=== PATIENT | male | born 2000 | race Caucasian/White ===

== ENCOUNTER 2025-03-20 08:01 | Emergency (ER) | payer OTHER, SELFPAY ==
[2025-03-20 08:12] VITALS: BP 143/69; PULSE 61; RESP 16; TEMP 36.6; O2SAT 100
--- NOTE | 2025-03-20 08:17 | ED.GENADULT ---
HPI - General Adult General Chief complaint: Dental/Oral Stated complaint: JAW SWELLING Time Seen by Provider: 03/20/25 08:15 Mode of arrival: ambulatory Limitations: no limitations History of Present Illness HPI narrative: 24-year-old male presents with concern for right jaw swelling. Reports his job is hurting last night noticed it was swollen this morning. He denies dental pain. Denies fever problems swallowing. Denies ear pain. Reports the area is tender to touch MD complaint: jaw swelling Related Data Allergies Allergy/AdvReac Type Severity Reaction Status Date / Time No Known Allergies Allergy Verified 03/20/25 08:10 Review of Systems Review of Systems: CONSTITUTIONAL: Denies malaise, chills, sweats, or fever. ENT: Denies rhinorrhea, congestion, sinus pain, otalgia or sore throat. RESPIRATORY: Denies cough or dyspnea. SKIN: Denies rash or itching. Reports tenderness to the right jaw MUSCULOSKELETAL: Denies myalgia. All systems reviewed & are unremarkable except as noted in HPI and below PMFSH Comments At time of signature, agree with nursing past medical, surgical, social and family history. There is no relevant family history pertinent to the presenting complaint Exam Narrative: GENERAL: Well-appearing, well-nourished, and in no acute distress. HEAD: Normocephalic, atraumatic. EYES: PERRLA, sclera clear, and EOMI. No nystagmus. ENT: Nares clear, turbinates pink, no rhinorrhea or epistaxis. Mucous membranes moist. TM pearly mckeon with sharp light reflex bilaterally; no tragal tenderness. Oropharynx without erythema or lesions. Tonsils not enlarged and without exudate. No missing teeth, broken teeth, caries, dental pain. No difficulty swallowing NECK: Supple. No lymphadenopathy. Right Parotid gland swelling and tenderness, no redness or warmth noted CHEST: No respiratory distress. Speaks in full sentences. HEART: Regular rate and rhythm. No murmur heard. Normal peripheral pulses. SKIN: Warm, dry, no visible rash. NEURO: Alert and oriented x3. PSYCH: Normal mood and affect Course Course Emergency Course: Patient is aware of diagnosis, understands and agrees to treatment plan. Anticipatory guidance given. Patient agrees to follow-up as directed and is aware of reasons to seek care at the emergency department. Portions of this record may have been created with voice recognition software Level of Care: Express Care Visit Vital Signs Vital signs: Vital Signs Temperature 98 F 03/20/25 08:12 Pulse Rate 61 03/20/25 08:12 Respiratory Rate 16 03/20/25 08:12 Blood Pressure 143/69 H 03/20/25 08:12 Pulse Oximetry 100 03/20/25 08:12 Temperature 98 F 03/20/25 08:12 Pulse Rate 61 03/20/25 08:12 Respiratory Rate 16 03/20/25 08:12 Blood Pressure 143/69 H 03/20/25 08:12 Pulse Oximetry 100 03/20/25 08:12 Reviewed. Medical Decision Making MDM Narrative Medical decision making narrative: The patient was evaluated by myself in the express care. History is obtained from patient who is an independent historian and physical exam was performed.? Available medical records were reviewed at this time. ? Exam findings show no acute concerns or changes; patient is non-toxic appearing and is in no distress. Patient is appropriate for outpatient treatment and follow-up. ? I have evaluated and discussed social determinants of health with the patient that could potentially impact subsequent diagnosis and treatment plans. ? Differential diagnosis and treatment plan were discussed with the patient. Patient agrees with discussion and after shared medical decision making agrees with plan of care. All questions were answered to the patient's satisfaction. Vital Signs Vital Signs: Vital Signs Temperature 98 F 03/20/25 08:12 Pulse Rate 61 03/20/25 08:12 Respiratory Rate 16 03/20/25 08:12 Blood Pressure 143/69 H 03/20/25 08:12 Pulse Oximetry 100 03/20/25 08:12 Temperature 98 F 03/20/25 08:12 Pulse Rate 61 03/20/25 08:12 Respiratory Rate 16 03/20/25 08:12 Blood Pressure 143/69 H 03/20/25 08:12 Pulse Oximetry 100 03/20/25 08:12 Critical Care Time Critical Care Time Critical Care Time: No Discharge Plan Discharge Clinical Impression: Swelling of right parotid gland Patient Disposition: Home Condition: Stable Instructions: Antibiotic Form, Sialoadenitis (ED) Additional Instructions: 1) Please follow-up with your primary care doctor in the next 1-2 days. 2) If you have any worsening of symptoms or any other urgent concerns please go to the ER. 3) Please take medications as prescribed and continue taking your home medications as usual. 4) Please read and follow information included in discharge instructions. Patient Language: Syriac Prescriptions: New amoxicillin-pot clavulanate 875-125 mg tablet 1 tablet PO Q12H 10 Days Qty: 20 0RF Follow-up/Referrals: PHYSICIAN,CORRECTIONAL SECURITY OFFICER [Primary Care Provider] - Stand Alone Forms: Work/School Release IP Time of Disposition: 08:23
== END 2025-03-20 08:26 | disposition home or self-care (01) ==
PROVIDERS: Emergency Provider Nurse Practitioner
DX: R59.0 Localized enlarged lymph nodes (principal)
CPT/HCPCS: 99203; G0463